=== PATIENT | female | born 1975 ===

== ENCOUNTER 2018-01-12 00:08 | Emergency (ER) | payer MEDICARE ==
[2018-01-12 00:10] VITALS: BMI 23.5
[2018-01-12 00:40] VITALS: BP 138/81; PULSE 78; RESP 18; TEMP 98.7; O2SAT 100
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
[2018-01-12 03:13] LABS: BARBITURATES, UR NEGATIVE (NEGATIVE); BENZODIAZEPINES, UR NEGATIVE (NEGATIVE); OPIATES, UR NEGATIVE (NEGATIVE); PHENCYCLIDINE, UR NEGATIVE (NEGATIVE)
== END 2018-01-12 06:00 | disposition home or self-care (01) ==
LOC: H.ER 00:08
DX: J02.9 Acute pharyngitis, unspecified (principal); R51 Headache; M54.9 Dorsalgia, unspecified; F31.9 Bipolar disorder, unspecified; I10 Essential (primary) hypertension
CPT/HCPCS: 81025; 87070; 87430; 99282; G0480